=== PATIENT | male | born 1950 | race Caucasian/White ===

== ENCOUNTER 2018-01-10 16:16 | Emergency (ER) | payer OTHER, BC ==
[~2018-01-10] VITALS: Ht 175.3 cm; Wt 86.5 kg
[2018-01-10 18:09] VITALS: BP 129/74
== END 2018-01-10 18:09 | disposition home or self-care (01) ==
LOC: EME 16:16
PROC: 0CQ7XZZ Repair Tongue, External Approach (ICD-10-PCS; principal; 2018-01-10)
DX: S01.512A Laceration without foreign body of oral cavity, initial encounter (principal); I25.2 Old myocardial infarction; Z79.82 Long term (current) use of aspirin; Z79.02 Long term (current) use of antithrombotics/antiplatelets; Z95.9 Presence of cardiac and vascular implant and graft, unspecified; Z88.0 Allergy status to penicillin
CPT/HCPCS: 99281; 99284